=== PATIENT | female | born 1960 | race Caucasian/White ===

== ENCOUNTER 2020-03-17 22:09 | Emergency (ER) | payer MEDICAID, OTHER ==
[~2020-03-17] VITALS: Ht 170.2 cm; Wt 84.5 kg
[2020-03-17] MEDS ORDERED: SODIUM CHLORIDE FLUSH 10ML SYR IVF ONE (22:30)
[2020-03-17] MEDS ORDERED: ASPIRIN 81 MG TABLET CHEW PO ONE (22:30)
--- NOTE | 2020-03-17 22:41 | NUR ---
PT AMB TO ROOM FROM LOBBY NO ASSIST REQ AT THIS TIME
--- NOTE | 2020-03-17 22:42 | NUR ---
THIS IS A 59Y F THAT COMES IN TONIGHT FOR L SIDED CP THAT CAME ON SUDDENLY, PT REPORTS N/V AND INTENSE ZACARIAS, DENIES RADIAION. PT HAS HX OF CVA BUT NOT FOR "YEARS" AND HAS NO LASTING DEFICITS, PT CONNECTED TO ALL MONITORING ABLE TO SPEAK IN FULL SENTENCES AND INTERACT WITH STAFF APPROPRIATELY
[2020-03-17] MEDS ORDERED: ASPIRIN 81 MG TABLET CHEW ONE (22:43)
[2020-03-17] MEDS ORDERED: IBUPROFEN 100 MG/5 ML UDC ONE (22:54)
--- NOTE | 2020-03-17 23:00 | NUR ---
DR ARCE AT BEDSIDE TO ASSESS PT AND DISCUSS POC, PT MEDICATED PRIOR TO ARRIVAL FOR BP PT TAKES LOSARTAN, AMLODAPINE, AND HCTZ. PT ALSO TOOK A "BABY ASPIRIN" PER DR ARCE PT TO BE GIVEN ONE MORE HERE FOR A DOSE OF 162MG. PIV STARTED LABS DRAWN PT ON ALL MONITORING VSS HTN NOTED.
[2020-03-17 23:02] LABS: BASOPHILS % (AUTO) 1 % (0-1); EOSINOPHILS % (AUTO) 1 % (1-7); LYMPHOCYTES % (AUTO) 19 % (22-44); MEAN CORPUSCULAR HEMOGLOBIN 29.7 pg (27.0-34.8); MEAN CORPUSCULAR HGB CONC 33.7 g/dL (32.4-35.8); MONOCYTES % (AUTO) 8 % (2-9); NEUTROPHILS % (AUTO) 70 % (42-75); PLATELET COUNT 201 x10^3/uL (130-400); RED BLOOD COUNT 5.38 x10^6/uL (3.82-5.3); RED CELL DISTRIBUTION WIDTH 13.5 % (9.6-15.2)
[2020-03-17 23:04] LABS: MD NO
[2020-03-17 23:15] LABS: ALANINE AMINOTRANSFERASE 33 U/L (12-78); ALBUMIN 3.8 g/dL (3.4-5.0); ANION GAP 6 mmol/L (5-15); CHLORIDE 105 mmol/L (98-107)
[2020-03-17 23:19] LABS: ALKALINE PHOSPHATASE 76 U/L (45-117); BILIRUBIN,TOTAL 0.3 mg/dL (0.2-1.0); TROPONIN I < 0.015 ng/mL (0.000-0.045)
[2020-03-18] MEDS ORDERED: NITROGLYCERIN 0.4 MG/HR PATCH TD ONE
--- NOTE | 2020-03-18 00:09 | NUR ---
NITRO PATCH REQ FROM PHARM AT THIS TIME
[2020-03-18] MEDS ORDERED: KETOROLAC 30 MG/1 ML ONE (00:21)
--- NOTE | 2020-03-18 00:25 | NUR ---
PT MEDICATED WITH 15MG TORADOL PER DR ARCE FOR ZACARIAS AT THIS TIME AND HOLD NITRO TO SEE IF PT IMPROVES
[2020-03-18] MEDS ORDERED: KETOROLAC 30 MG/1 ML IVPush ONE (00:30)
--- NOTE | 2020-03-18 00:36 | NUR ---
PT UP TO RESTROOM WITH STEADY GAIT AT THIS TIME. PT ALSO NOW REPORTS BROKEN HIP, BROKEN ELBOW, HERNIATED DISKS WELL CHRONIC MIGRAINES
--- NOTE | 2020-03-18 01:35 | NUR ---
PT RESTING ON MARLEN GARNICA, NO NEEDS AT THIS TIME AWAITING LAB RESULTS AND DISPO
[2020-03-18 01:56] LABS: TROPONIN I < 0.015 ng/mL (0.000-0.045)
[2020-03-18 02:01] VITALS: BP 132/86
--- NOTE | 2020-03-18 02:14 | NUR ---
Patient/Caregiver given discharge instructions and they have confirmed that they understand the instructions. Patient ambulatory with steady gait.
== END 2020-03-18 02:21 | disposition home or self-care (01) ==
LOC: ED 23:45
DX: R07.89 Other chest pain (principal); R11.2 Nausea with vomiting, unspecified; Z86.73 Personal history of transient ischemic attack (TIA), and cerebral infarction without residual deficits
CPT/HCPCS: 36415; 71045; 80053; 83880; 84484; 85025; 85379; 93005; 96374; 99285; J1885

== ENCOUNTER → 2020-05-09 | Outpatient (CLI) | payer OTHER ==
[~2020-05-09] MED LIST: REGADENOSON 0.4 MG/5 ML SYRINGE ONE
== END | disposition home or self-care (01) ==
LOC: CVU 06:47
PROVIDERS: ATTEND Internal Medicine Cardiovascular Disease
DX: I10 Essential (primary) hypertension (principal); R07.9 Chest pain, unspecified
CPT/HCPCS: 78452; 93017; 93306; 93356; A9502; J2785

== ENCOUNTER → 2020-06-16 | Outpatient (CLI) | payer OTHER | END | disposition home or self-care (01) | LOC: CFH 13:06 | PROVIDERS: ATTEND Physician Assistant Medical | DX: Z13.6 Encounter for screening for cardiovascular disorders (principal); E78.5 Hyperlipidemia, unspecified | CPT/HCPCS: 75571 ==

== ENCOUNTER → 2020-09-16 | Outpatient (CLI) | payer OTHER | END | disposition home or self-care (01) | LOC: CFH 13:55 | PROVIDERS: ATTEND Internal Medicine | DX: J43.9 Emphysema, unspecified (principal); R09.02 Hypoxemia | CPT/HCPCS: 71250 ==

== ENCOUNTER 2020-12-08 05:39 | Day surgery (SDC) | payer OTHER ==
[2020-12-06 15:20] LABS: ALBUMIN 3.6 g/dL (3.4-5.0); ANION GAP 7 mmol/L (5-15); CALCIUM 9.6 mg/dL (8.5-10.1); CHLORIDE 106 mmol/L (98-107)
[2020-12-06 15:24] LABS: ALANINE AMINOTRANSFERASE 114 U/L (12-78); ALKALINE PHOSPHATASE 72 U/L (45-117); BILIRUBIN,TOTAL 0.4 mg/dL (0.2-1.0); CREATININE 0.57 mg/dL (0.55-1.02)
[2020-12-06 15:28] LABS: MEAN CORPUSCULAR HEMOGLOBIN 29.3 pg (27.0-34.8); MEAN CORPUSCULAR HGB CONC 33.3 g/dL (32.4-35.8); MEAN PLATELET VOLUME 9.6 fL (7.4-10.4); NEUTROPHILS % (AUTO) 57 % (42-75); PLATELET COUNT 209 x10^3/uL (130-400); RED BLOOD COUNT 5.32 x10^6/uL (3.82-5.3); RED CELL DISTRIBUTION WIDTH 13.8 % (9.6-15.2)
[2020-12-06 15:29] LABS: BASOPHILS % (AUTO) 1 % (0-1); EOSINOPHILS % (AUTO) 4 % (1-7); LYMPHOCYTES % (AUTO) 27 % (22-44); MONOCYTES % (AUTO) 11 % (2-9)
[2020-12-06 15:38] LABS: MICROSCOPIC INDICATED
[~2020-12-08] VITALS: Ht 167.6 cm; Wt 85.1 kg
[~2020-12-08 05:39] MED LIST changes: +AMLO5TAB4 PO; +HYDROCHLOROTH12.5 MG PO; +LOSA100T14 PO; +MAGN400T9 PO; +POLY17PO5 PO; +POTA20TA89 PO; -REGADENOSON 0.4 MG/5 ML SYRINGE ONE; +SPIR25TA5 PO
[2020-12-08 06:13] VITALS: BP 115/77
[2020-12-08] MEDS ORDERED: CEFAZOLIN 2,000 MG in SODIUM CHLORIDE 0.9% 50 ML IV ONE (06:30)
[2020-12-08] MEDS ORDERED: LACTATED RINGERS 1,000 ML IV SCH (06:30)
[2020-12-08] MEDS ORDERED: CEFAZOLIN PMX 2GM/50ML 50 ML IVPB ONE (06:30)
[2020-12-08] MEDS ORDERED: CHLORHEXIDINE 15 ML UDC PO ONE ×2 (06:30→07:30)
[2020-12-08] MEDS ORDERED: EPINEPHRINE 1 MG/ML, 1ML ONE (06:54)
[2020-12-08] MEDS ORDERED: BUPIVACAINE/PF 0.5% ONE ×2 (06:54→08:13)
[2020-12-08] MEDS ORDERED: ESTROGENS CONJUGATED VAG CRM 0.625MG/1G, 30GM ONE (06:54)
[2020-12-08] MEDS ORDERED: GABAPENTIN 300 MG CAPSULE PO ONE (07:00)
[2020-12-08] MEDS ORDERED: ACETAMINOPHEN 500 MG TABLET PO ONE (07:00)
[2020-12-08] MEDS ORDERED: VANCOMYCIN 500 MG ONE (07:15)
[2020-12-08] MEDS ORDERED: GENTAMICIN 80 MG/2 ML ONE (07:15)
[2020-12-08] MEDS ORDERED: FLUORESCEIN SODIUM 500 MG/5 ML ONE (07:15)
[2020-12-08] MEDS ORDERED: MIDAZOLAM 1 MG/ML, 2ML ONE (07:19)
[2020-12-08] MEDS ORDERED: FENTANYL PF 250 MCG/5ML ONE (07:20)
[2020-12-08] MEDS ORDERED: SCOPOLAMINE 1MG PATCH TD ONE (07:23)
[2020-12-08] MEDS ORDERED: PHENYLEPHRINE 10 MG/ML ONE (07:27)
[2020-12-08] MEDS ORDERED: SCOPOLAMINE 1MG PATCH TD SCH (07:30)
[2020-12-08] MEDS ORDERED: BUPIVACAINE/EPI 0.5% 1:200K INFIL ONE (07:53)
[2020-12-08] MEDS ORDERED: THROMBIN 5,000 UNIT VIAL TP ONE (07:55)
[2020-12-08] MEDS ORDERED: ACETAMINOPHEN 325 MG TABLET PO PRN (08:00)
[2020-12-08] MEDS ORDERED: LORazepam 2 MG/ML, 1ML IVPush PRN (08:00)
[2020-12-08] MEDS ORDERED: ALBUTEROL SULFATE 2.5 MG/3 ML NPPB PRN (08:00)
[2020-12-08] MEDS ORDERED: LABETALOL 5MG/ML, 20ML IV PRN (08:00)
[2020-12-08] MEDS ORDERED: HYDROmorphone 1 MG/ML, 1ML INJ IVPush PRN (08:00)
[2020-12-08] MEDS ORDERED: FENTANYL PF 100 MCG/2ML IV PRN (08:00)
[2020-12-08] MEDS ORDERED: PROMETHAZINE 25 MG/ML, 1ML IVPush PRN (08:00)
[2020-12-08] MEDS ORDERED: MEPERIDINE/PF 25MG/0.5ML IVPush PRN (08:00)
[2020-12-08] MEDS ORDERED: METHOCARBAMOL 1,000 MG in DEXTROSE 5% 100 ML IV PRN (08:00)
[2020-12-08] MEDS ORDERED: OXYcodone 5 MG/5 ML ORAL.SOL UDC PO PRN (08:00)
[2020-12-08] MEDS ORDERED: LIDOCAINE-MPF 2% ,5ML ONE (08:48)
[2020-12-08] MEDS ORDERED: DEXAMETHASONE 4 MG/ML, 1ML ONE (08:48)
[2020-12-08] MEDS ORDERED: KETOROLAC 30 MG/1 ML ONE (08:48)
[2020-12-08] MEDS ORDERED: CEFAZOLIN 1,000 MG ONE (08:48)
[2020-12-08] MEDS ORDERED: PROPOFOL 10 MG/ML, 20ML ONE (08:48)
[2020-12-08] MEDS ORDERED: ONDANSETRON 2MG/ML, 2ML ONE (08:48)
== END 2020-12-08 14:00 | disposition home or self-care (01) ==
LOC: OUT 05:39
PROVIDERS: ATTEND Obstetrics & Gynecology
DX: N39.3 Stress incontinence (female) (male) (principal); N81.10 Cystocele, unspecified; N81.6 Rectocele; I10 Essential (primary) hypertension; E78.00 Pure hypercholesterolemia, unspecified; Z20.822 Contact with and (suspected) exposure to COVID-19; Z86.73 Personal history of transient ischemic attack (TIA), and cerebral infarction without residual deficits; Z79.891 Long term (current) use of opiate analgesic; Z79.899 Other long term (current) drug therapy; Z88.2 Allergy status to sulfonamides; Z88.5 Allergy status to narcotic agent; Z88.8 Allergy status to other drugs, medicaments and biological substances; Z90.710 Acquired absence of both cervix and uterus; Z90.79 Acquired absence of other genital organ(s); Z98.890 Other specified postprocedural states; Z80.3 Family history of malignant neoplasm of breast; Z80.1 Family history of malignant neoplasm of trachea, bronchus and lung; Z82.49 Family history of ischemic heart disease and other diseases of the circulatory system; Z82.3 Family history of stroke; Z83.42 Family history of familial hypercholesterolemia
CPT/HCPCS: 36415; 57260; 57288; 80053; 81001; 85025; 93005; C1771; J0171; J0690; J1100; J1580; J1885; J2250; J2370; J2405; J2704; J3010; J3370; J7120; U0003; U0005